=== PATIENT | female | born 1945 | race Caucasian/White ===

== ENCOUNTER 2019-01-12 15:50 | Inpatient (IN) | payer MEDICARE, MEDICAID ==
[~2019-01-12] VITALS: Ht 152.4 cm; Wt 75.2 kg
[2019-01-12 17:10] LABS: INTERNATIONAL NORMALIZED RATIO 1.54 (0.93-1.1); PROTHROMBIN TIME 16.1 Seconds (9.6-11.5)
[2019-01-12 17:11] LABS: ALBUMIN 2.9 g/dL (3.4-5.0); ANION GAP 10 mmol/L (5-15); CALCIUM 9.6 mg/dL (8.5-10.1); CHLORIDE 97 mmol/L (98-107)
[2019-01-12 17:17] LABS: ALKALINE PHOSPHATASE 103 U/L (45-117); BILIRUBIN,TOTAL 1.3 mg/dL (0.2-1.0); CREATININE 6.74 mg/dL (0.55-1.02); TOTAL PROTEIN 7.1 g/dL (6.4-8.2); TROPONIN I 0.076 ng/mL (0.000-0.045)
[2019-01-12 17:19] LABS: ALANINE AMINOTRANSFERASE 1122 U/L (12-78)
[2019-01-12] MEDS ORDERED: NALOXONE 0.4 MG/ML, 1ML IVPush ONE (17:30)
[2019-01-12 17:31] LABS: BASOPHILS # (AUTO) 0.06 x10^3/uL (0-0.1); BASOPHILS % (AUTO) 0 % (0-1); EOSINOPHILS % (AUTO) 0 % (1-7); LYMPHOCYTES # (AUTO) 1.09 x10^3/uL (1-3.4); LYMPHOCYTES % (AUTO) 7 % (22-44); MD SCAN; MEAN CORPUSCULAR HEMOGLOBIN 35.3 pg (27.0-34.8); MEAN CORPUSCULAR HGB CONC 32.5 g/dL (32.4-35.8); MEAN CORPUSCULAR VOLUME 108.8 fL (80-100); MEAN PLATELET VOLUME 9.7 fL (7.4-10.4); MONOCYTES # (AUTO) 1.01 x10^3/uL (0.2-0.8); MONOCYTES % (AUTO) 7 % (2-9); NEUTROPHILS # (AUTO) 13.42 x10^3/uL (1.8-6.8); NEUTROPHILS % (AUTO) 86 % (42-75); PLATELET COUNT 90 x10^3/uL (130-400); RED BLOOD COUNT 3.08 x10^6/uL (3.82-5.3)
[2019-01-12] MEDS ORDERED: NALOXONE 0.4 MG/ML, 1ML ONE (17:31)
--- NOTE | 2019-01-12 17:36 | NUR ---
NARCAN 0.2MG IVP GIVEN WITH POSITIVE RESULTS. PATIENT AWAKE NOW. PATIENT DOES NOT KNOW WHAT PAIN MEDICATION SHE HAD EARLIER TODAY AT [facility].
[2019-01-12] MEDS ORDERED: LORazepam 2 MG/ML, 1ML ONE (17:43)
[2019-01-12] MEDS ORDERED: LEVO88TA4 PO (18:32)
--- NOTE | 2019-01-12 18:58 | NUR ---
SBAR REPORT GIVEN TO MATEUS MORRIS. CCU ATTEMPTING TO DOWNGRADE LEVEL OF CARE. AWAITING POSSIBLE CHANGE OF ADMIT ORDERS.
[2019-01-12] MEDS ORDERED: POTA20TA14 PO (19:01)
[2019-01-12] MEDS ORDERED: HYDR-3307 PO (19:01)
[2019-01-12] MEDS ORDERED: DOXY100C15 PO (19:02)
[2019-01-12] MEDS ORDERED: HYDR25TA11 PO (19:03)
[2019-01-12] MEDS ORDERED: DICL100G19 TD (19:04)
[2019-01-12] MEDS ORDERED: CITA40TA5 PO (19:04)
[2019-01-12] MEDS ORDERED: MECL-76 PO (19:12)
[2019-01-12] MEDS ORDERED: CITA40TA12 PO (19:12)
[2019-01-12] MEDS ORDERED: LEVO125T5 PO (19:12)
[2019-01-12] MEDS ORDERED: TRIA100A TP (19:12)
[2019-01-12] MEDS ORDERED: VIT1TABL PO (19:17)
[2019-01-12] MEDS ORDERED: DIVA500T4 PO (19:17)
[2019-01-12] MEDS ORDERED: MELA1TAB35 PO (19:17)
[2019-01-12] MEDS ORDERED: SEVE800T8 PO (19:17)
[2019-01-12] MEDS ORDERED: ASPI-496 PO (19:20)
[2019-01-12] MEDS ORDERED: OMEP-110 PO (19:20)
[2019-01-12] MEDS ORDERED: CETI-237 PO (19:20)
[2019-01-12] MEDS ORDERED: DOCUSATE 100 MG CAPSULE PO PRN (19:30)
[2019-01-12] MEDS ORDERED: ONDANSETRON 2MG/ML, 2ML IVPush PRN (19:30)
[2019-01-12] MEDS ORDERED: LABETALOL 5MG/ML, 20ML IVPush PRN (19:30)
[2019-01-12] MEDS ORDERED: ONDANSETRON ODT 4 MG PO PRN (19:30)
[2019-01-12] MEDS ORDERED: hydrALAzine 20 MG/ML, 1ML IVPush PRN (19:30)
[2019-01-12] MEDS ORDERED: PROMETHAZINE 25 MG/ML, 1ML IM PRN (19:30)
--- NOTE | 2019-01-12 19:37 | NUR ---
CCU HAS REFUSED TO ACCEPT PT UNTIL EVALUATED FOR A DOWN GRADE BY ADMIT MD. PT AWAITING EVAL AT THIS TIME. PT ASLEEP VSS AND FAMILY AT BEDSIDE.
[2019-01-12] MEDS ORDERED: MECLIZINE CHEWABLE 25 MG TAB PO PRN (20:00)
[2019-01-12 20:11] LABS: FREE T4 (FREE THYROXINE) 1.13 ng/dL (0.76-1.46); THYROID STIMULATING HORMONE 0.643 mIU/L (0.358-3.740)
[2019-01-12 20:22] LABS: HEMOGLOBIN A1C 5.3 % (4.2-6.3)
--- NOTE | 2019-01-12 20:36 | NUR ---
REPORT CALLED TO FLOOR
[2019-01-12] MEDS ORDERED: CEFOXITIN 1,000 MG in DEXTROSE 5% 50 ML IV SCH (21:00)
[2019-01-12] MEDS ORDERED: DIVALPROEX 500 MG TAB.ER.24H PO SCH (21:00)
[2019-01-12] MEDS: SEVELAMER CARBONATE 800MG TAB PO SCH (21:51)
[2019-01-12 22:00] VITALS: BP 181/67
[2019-01-12] MEDS ORDERED: DARBEPOETIN 100 MCG/ML SQ SCH (22:00)
[2019-01-12] MEDS: HEPARIN 5,000 UNITS/ML, 1ML SQ SCH (22:42)
[2019-01-12 23:42] LABS: TROPONIN I 0.057 ng/mL (0.000-0.045)
[2019-01-12] MEDS: METRONIDAZOLE PMX 500MG/100ML 100 ML IV SCH (23:43)
[2019-01-12] MEDS: TRIAMCINOLONE CRM 0.1%, 15GM TP SCH (23:44)
[2019-01-13 01:38] VITALS: BP 170/68
[2019-01-13] MEDS: VALPROATE SODIUM 250 MG in SODIUM CHLORIDE 0.9% 100 ML IV SCH ×3 (03:53→21:32)
[2019-01-13 05:25] LABS: ALBUMIN 2.8 g/dL (3.4-5.0); ANION GAP 11 mmol/L (5-15); CALCIUM 9.7 mg/dL (8.5-10.1); CHLORIDE 97 mmol/L (98-107); CHOLESTEROL, TOTAL 68 mg/dL (140-239); TRIGLYCERIDES 101 mg/dL (50-200); VLDL CHOLESTEROL 20 mg/dL (0-25)
[2019-01-13 05:30] LABS: % IRON SATURATION 51 % (20-55); ALANINE AMINOTRANSFERASE 928 U/L (12-78); ALKALINE PHOSPHATASE 102 U/L (45-117); BILIRUBIN,TOTAL 1.1 mg/dL (0.2-1.0); CREATININE 7.65 mg/dL (0.55-1.02); HDL CHOL % 25 % (28-40); HDL CHOLESTEROL (DIRECT) 17 mg/dL (40-60); IRON LEVEL 132 mcg/dL (50-170); LDL CHOLESTEROL,CALCULATED 31 mg/dL (54-169); LDL/HDL RATIO 1.8 (0.5-3.0); TOTAL IRON BINDING CAPACITY 260 mcg/dL (250-450); TOTAL PROTEIN 6.5 g/dL (6.4-8.2); TROPONIN I 0.047 ng/mL (0.000-0.045)
[2019-01-13 07:07] VITALS: BP 164/65
[2019-01-13 07:55] LABS: MEAN CORPUSCULAR HGB CONC 31.3 g/dL (32.4-35.8); MEAN CORPUSCULAR VOLUME 108.5 fL (80-100); MEAN PLATELET VOLUME 9.4 fL (7.4-10.4); PLATELET COUNT 84 x10^3/uL (130-400); RED BLOOD COUNT 2.98 x10^6/uL (3.82-5.3); RED CELL DISTRIBUTION WIDTH 18.4 % (9.6-15.2)
[2019-01-13] MEDS: SEVELAMER CARBONATE 800MG TAB PO SCH ×3 (08:02→21:00)
[2019-01-13] MEDS: MULTIVITS,STRESS FORMULA 1 TABLET PO SCH (08:02)
[2019-01-13] MEDS: CITALOPRAM 20 MG TABLET PO SCH (08:02)
[2019-01-13] MEDS: CETIRIZINE 10 MG TABLET PO SCH (08:02)
[2019-01-13] MEDS: ASPIRIN 81 MG TABLET EC PO SCH (08:02)
[2019-01-13] MEDS: OMEPRAZOLE 20 MG CAPSULE.DR PO SCH (08:03)
[2019-01-13] MEDS: HEPARIN 5,000 UNITS/ML, 1ML SQ SCH ×3 (08:10→23:00)
[2019-01-13] MEDS: METRONIDAZOLE PMX 500MG/100ML 100 ML IV SCH ×2 (08:10→16:34)
[2019-01-13 08:17] LABS: MD YES
[2019-01-13 08:19] LABS: BAND#(MANUAL) 0.54 x10^3/uL; BANDS%(MANUAL) 3 % (0-7); LYMPH#(MANUAL) 1.25 x10^3/uL (1-3.4); LYMPHS% (MANUAL) 7 % (22-44); MONOS#(MANUAL) 1.07 x10^3/uL (0.3-2.7); MONOS% (MANUAL) 6 % (2-9); NRBC % (MANUAL) 2 % (0-1); SEG#(MANUAL) 15.04 x10^3/uL (1.8-6.8); SEGS% (MANUAL) 84 % (42-75)
[2019-01-13 08:20] LABS: ANISOCYTOSIS 1+; HYPOCHROMIA 1+
[2019-01-13 08:21] LABS: <PLATELET ESTIMATE> DECREASED; <PLT MORPHOLOGY> NORMAL PLT MORPH; POLYCHROMASIA 1+
[2019-01-13] MEDS: LEVOTHYROXINE 125 MCG TABLET PO SCH (08:36)
[2019-01-13] MEDS ORDERED: HYDROmorphone 2 MG/ML, 1ML IV ONE (09:00)
[2019-01-13] MEDS ORDERED: CEFOXITIN 1,000 MG in DEXTROSE 5% 50 ML IV SCH (10:00)
[2019-01-13] MEDS: TRIAMCINOLONE CRM 0.1%, 15GM TP SCH ×2 (14:23→21:00)
[2019-01-13] MEDS: CEFOXITIN 1,000 MG in DEXTROSE 5% 50 ML IV SCH (15:11)
[2019-01-13 19:50] VITALS: BP 152/80
[2019-01-13] MEDS ORDERED: HYDROmorphone 2 MG/ML, 1ML ONE (21:21)
[2019-01-13] MEDS: HYDROmorphone 1 MG/ML, 1ML IV PRN (21:30)
[2019-01-14 00:55] VITALS: BP 163/83
[2019-01-14] MEDS: METRONIDAZOLE PMX 500MG/100ML 100 ML IV SCH ×3 (01:05→17:53)
[2019-01-14] MEDS: HEPARIN 5,000 UNITS/ML, 1ML SQ SCH (04:14)
[2019-01-14] MEDS: LEVOTHYROXINE 125 MCG TABLET PO SCH (04:14)
[2019-01-14] MEDS: VALPROATE SODIUM 250 MG in SODIUM CHLORIDE 0.9% 100 ML IV SCH ×4 (04:18→21:35)
[2019-01-14 05:03] LABS: ALBUMIN 2.5 g/dL (3.4-5.0); ANION GAP 6 mmol/L (5-15); CHLORIDE 98 mmol/L (98-107)
[2019-01-14 05:07] LABS: ALANINE AMINOTRANSFERASE 640 U/L (12-78); ALKALINE PHOSPHATASE 91 U/L (45-117); BILIRUBIN,TOTAL 1.2 mg/dL (0.2-1.0); CREATININE 5.38 mg/dL (0.55-1.02); TOTAL PROTEIN 6.1 g/dL (6.4-8.2)
[2019-01-14 05:10] LABS: MEAN CORPUSCULAR HEMOGLOBIN 36.5 pg (27.0-34.8); MEAN CORPUSCULAR HGB CONC 33.4 g/dL (32.4-35.8); MEAN CORPUSCULAR VOLUME 109.4 fL (80-100); MEAN PLATELET VOLUME 10.4 fL (7.4-10.4); PLATELET COUNT 73 x10^3/uL (130-400); RED BLOOD COUNT 2.93 x10^6/uL (3.82-5.3); RED CELL DISTRIBUTION WIDTH 18.4 % (9.6-15.2)
[2019-01-14 05:53] LABS: MD YES
[2019-01-14 05:55] LABS: ANISOCYTOSIS 1+; BAND#(MANUAL) 0.38 x10^3/uL; BANDS%(MANUAL) 2 % (0-7); HYPOCHROMIA 1+; LYMPH#(MANUAL) 1.73 x10^3/uL (1-3.4); LYMPHS% (MANUAL) 9 % (22-44); MONOS#(MANUAL) 1.34 x10^3/uL (0.3-2.7); MONOS% (MANUAL) 7 % (2-9); NRBC % (MANUAL) 2 % (0-1); POLYCHROMASIA 1+; SEG#(MANUAL) 15.74 x10^3/uL (1.8-6.8); SEGS% (MANUAL) 82 % (42-75)
[2019-01-14 05:56] LABS: <PLATELET ESTIMATE> DECREASED; <PLT MORPHOLOGY> NORMAL PLT MORPH
[2019-01-14 07:30] VITALS: BP 150/81
[2019-01-14] MEDS ORDERED: hydrALAzine 20 MG/ML, 1ML IVPush PRN ×2 (07:30→21:00)
[2019-01-14] MEDS ORDERED: HEPARIN 5,000 UNITS/ML, 1ML SQ SCH ×2 (08:30→21:00)
[2019-01-14] MEDS ORDERED: HYDROmorphone 2 MG/ML, 1ML ONE ×2 (09:11→16:43)
[2019-01-14] MEDS: HYDROmorphone 1 MG/ML, 1ML IV PRN ×2 (09:15→16:51)
[2019-01-14] MEDS: TRIAMCINOLONE CRM 0.1%, 15GM TP SCH ×2 (09:18→21:31)
[2019-01-14] MEDS: ASPIRIN 81 MG TABLET EC PO SCH (09:30)
[2019-01-14] MEDS: MULTIVITS,STRESS FORMULA 1 TABLET PO SCH (09:30)
[2019-01-14] MEDS: CITALOPRAM 20 MG TABLET PO SCH (09:30)
[2019-01-14] MEDS: SEVELAMER CARBONATE 800MG TAB PO SCH ×3 (09:30→21:28)
[2019-01-14] MEDS: CETIRIZINE 10 MG TABLET PO SCH (09:30)
[2019-01-14] MEDS: OMEPRAZOLE 20 MG CAPSULE.DR PO SCH (09:30)
[2019-01-14] MEDS ORDERED: DEXTROSE 50%, 50ML SYRINGE ONE (12:58)
[2019-01-14] MEDS ORDERED: DEXTROSE 50%, 50ML SYRINGE IVPush PRN ×2 (13:00→21:00)
[2019-01-14] MEDS ORDERED: D5%-0.9% NACL 1,000 ML IV SCH (13:00)
[2019-01-14] MEDS ORDERED: GLUCAGON 1 MG IM PRN ×2 (13:00→21:00)
[2019-01-14] MEDS ORDERED: DEXTROSE 4 GM TAB.CHEW PO PRN ×2 (13:00→21:00)
[2019-01-14 16:35] VITALS: BP 142/80
[2019-01-14] MEDS: CEFOXITIN 1,000 MG in DEXTROSE 5% 50 ML IV SCH (16:51)
[2019-01-14 18:40] VITALS: BP 153/73
--- NOTE | 2019-01-14 19:18 | NUR ---
REC: pureed diet with thin liquids with 1:1 assistance for meals due to lethargy Addendum: 01/14/19 at 1918 by [place] ULLOA Amended: Links added.
[2019-01-14] MEDS ORDERED: SEVELAMER CARBONATE 800MG TAB ONE (20:29)
[2019-01-14] MEDS ORDERED: HEPARIN 5,000 UNITS/ML, 1ML ONE (20:29)
[2019-01-14] MEDS ORDERED: LABETALOL 5MG/ML, 20ML IVPush PRN (21:00)
[2019-01-14] MEDS ORDERED: DOCUSATE 100 MG CAPSULE PO PRN (21:00)
[2019-01-14] MEDS ORDERED: MECLIZINE CHEWABLE 25 MG TAB PO PRN (21:00)
[2019-01-14] MEDS ORDERED: ONDANSETRON 2MG/ML, 2ML IVPush PRN (21:00)
[2019-01-14] MEDS ORDERED: HYDROmorphone 1 MG/ML, 1ML IV PRN (21:00)
[2019-01-14] MEDS ORDERED: ONDANSETRON ODT 4 MG PO PRN (21:00)
[2019-01-14] MEDS ORDERED: SODIUM CHLORIDE FLUSH 10ML SYR IVF SCH (21:00)
[2019-01-14] MEDS ORDERED: PROMETHAZINE 25 MG/ML, 1ML IM PRN (21:00)
[2019-01-14] MEDS: SODIUM CHLORIDE FLUSH 10ML SYR IVF SCH (21:28)
[2019-01-14] MEDS: D5%-0.9% NACL 1,000 ML IV SCH (21:36)
[2019-01-15] MEDS: METRONIDAZOLE PMX 500MG/100ML 100 ML IV SCH ×3 (02:06→18:32)
[2019-01-15 02:08] VITALS: BP 137/76
[2019-01-15 03:08] LABS: CULTURE INDICATED? YES; MICROSCOPIC INDICATED
[2019-01-15] MEDS ORDERED: HYDROmorphone 2 MG/ML, 1ML ONE (03:31)
[2019-01-15] MEDS: VALPROATE SODIUM 250 MG in SODIUM CHLORIDE 0.9% 100 ML IV SCH ×4 (03:37→21:37)
[2019-01-15] MEDS: LEVOTHYROXINE 125 MCG TABLET PO SCH (06:20)
[2019-01-15 06:54] LABS: ALANINE AMINOTRANSFERASE 442 U/L (12-78); ALBUMIN 2.4 g/dL (3.4-5.0); ANION GAP 5 mmol/L (5-15); CALCIUM 8.6 mg/dL (8.5-10.1); CHLORIDE 105 mmol/L (98-107)
[2019-01-15 06:57] LABS: ALKALINE PHOSPHATASE 81 U/L (45-117); BILIRUBIN,TOTAL 1.2 mg/dL (0.2-1.0); TOTAL PROTEIN 6.5 g/dL (6.4-8.2)
[2019-01-15 06:58] LABS: MEAN CORPUSCULAR HEMOGLOBIN 34.6 pg (27.0-34.8); MEAN CORPUSCULAR HGB CONC 31.3 g/dL (32.4-35.8); MEAN CORPUSCULAR VOLUME 110.6 fL (80-100); MEAN PLATELET VOLUME 9.1 fL (7.4-10.4); PLATELET COUNT 64 x10^3/uL (130-400); RED BLOOD COUNT 2.91 x10^6/uL (3.82-5.3); RED CELL DISTRIBUTION WIDTH 20.1 % (9.6-15.2)
[2019-01-15 07:11] VITALS: BP 132/72
[2019-01-15 07:18] LABS: BASOPHILS # (AUTO) 0.01 x10^3/uL (0-0.1); BASOPHILS % (AUTO) 0 % (0-1); EOSINOPHILS # (AUTO) 0.07 x10^3/uL (0-0.4); EOSINOPHILS % (AUTO) 0 % (1-7); LYMPHOCYTES # (AUTO) 1.75 x10^3/uL (1-3.4); LYMPHOCYTES % (AUTO) 11 % (22-44); MD MORPH REVIEW ONLY; MONOCYTES # (AUTO) 1.16 x10^3/uL (0.2-0.8); MONOCYTES % (AUTO) 7 % (2-9); NEUTROPHILS # (AUTO) 13.31 x10^3/uL (1.8-6.8); NEUTROPHILS % (AUTO) 82 % (42-75)
[2019-01-15 07:19] LABS: ANISOCYTOSIS 1+
[2019-01-15 07:20] LABS: <PLATELET ESTIMATE> DECREASED; <PLT MORPHOLOGY> NORMAL PLT MORPH; HYPOCHROMIA 1+; POLYCHROMASIA 1+
[2019-01-15] MEDS: SODIUM CHLORIDE FLUSH 10ML SYR IVF SCH ×2 (09:00→21:37)
[2019-01-15] MEDS: MULTIVITS,STRESS FORMULA 1 TABLET PO SCH (09:25)
[2019-01-15] MEDS: CETIRIZINE 10 MG TABLET PO SCH (09:25)
[2019-01-15] MEDS: SEVELAMER CARBONATE 800MG TAB PO SCH ×2 (09:25→17:40)
[2019-01-15] MEDS: ASPIRIN 81 MG TABLET EC PO SCH (09:26)
[2019-01-15] MEDS: OMEPRAZOLE 20 MG CAPSULE.DR PO SCH (09:26)
[2019-01-15] MEDS: CITALOPRAM 20 MG TABLET PO SCH (09:26)
[2019-01-15] MEDS: TRIAMCINOLONE CRM 0.1%, 15GM TP SCH ×2 (09:26→21:38)
[2019-01-15 12:39] VITALS: BP 138/78
[2019-01-15] MEDS: CEFOXITIN 1,000 MG in DEXTROSE 5% 50 ML IV SCH (17:40)
[2019-01-15 19:12] VITALS: BP 164/82
[2019-01-16] MEDS: D5%-0.9% NACL 1,000 ML IV SCH (00:09)
[2019-01-16 01:05] VITALS: BP 148/77
[2019-01-16] MEDS: METRONIDAZOLE PMX 500MG/100ML 100 ML IV SCH ×3 (02:13→18:03)
[2019-01-16] MEDS: VALPROATE SODIUM 250 MG in SODIUM CHLORIDE 0.9% 100 ML IV SCH ×4 (03:22→21:36)
[2019-01-16] MEDS: LEVOTHYROXINE 125 MCG TABLET PO SCH (06:37)
[2019-01-16 07:28] VITALS: BP 166/83
[2019-01-16] MEDS: MULTIVITS,STRESS FORMULA 1 TABLET PO SCH (08:24)
[2019-01-16] MEDS: OMEPRAZOLE 20 MG CAPSULE.DR PO SCH (08:24)
[2019-01-16] MEDS: TRIAMCINOLONE CRM 0.1%, 15GM TP SCH ×2 (08:24→21:36)
[2019-01-16] MEDS: SEVELAMER CARBONATE 800MG TAB PO SCH ×3 (08:24→16:49)
[2019-01-16] MEDS: CITALOPRAM 20 MG TABLET PO SCH (08:24)
[2019-01-16] MEDS: SODIUM CHLORIDE FLUSH 10ML SYR IVF SCH ×2 (08:24→21:36)
[2019-01-16] MEDS: CETIRIZINE 10 MG TABLET PO SCH (08:24)
[2019-01-16] MEDS: ASPIRIN 81 MG TABLET EC PO SCH (08:24)
[2019-01-16 13:41] VITALS: BP 154/78
[2019-01-16] MEDS: CEFOXITIN 1,000 MG in DEXTROSE 5% 50 ML IV SCH (16:49)
[2019-01-16 19:22] VITALS: BP 163/84
[2019-01-17 01:00] VITALS: BP 153/83
[2019-01-17] MEDS: METRONIDAZOLE PMX 500MG/100ML 100 ML IV SCH ×2 (01:36→11:35)
[2019-01-17] MEDS: VALPROATE SODIUM 250 MG in SODIUM CHLORIDE 0.9% 100 ML IV SCH ×2 (02:55→09:15)
[2019-01-17] MEDS: D5%-0.9% NACL 1,000 ML IV SCH (03:49)
[2019-01-17 06:26] LABS: ANION GAP 10 mmol/L (5-15); CALCIUM 9.1 mg/dL (8.5-10.1); CHLORIDE 109 mmol/L (98-107)
[2019-01-17] MEDS: LEVOTHYROXINE 125 MCG TABLET PO SCH (06:26)
[2019-01-17 06:29] LABS: ALANINE AMINOTRANSFERASE 199 U/L (12-78); ALKALINE PHOSPHATASE 66 U/L (45-117); BILIRUBIN,TOTAL 1.1 mg/dL (0.2-1.0); CREATININE 6.75 mg/dL (0.55-1.02); TOTAL PROTEIN 5.7 g/dL (6.4-8.2)
[2019-01-17 07:27] LABS: MEAN CORPUSCULAR HEMOGLOBIN 35.3 pg (27.0-34.8); MEAN CORPUSCULAR VOLUME 110.1 fL (80-100); MEAN PLATELET VOLUME 8.6 fL (7.4-10.4); RED BLOOD COUNT 2.76 x10^6/uL (3.82-5.3); RED CELL DISTRIBUTION WIDTH 21.3 % (9.6-15.2)
[2019-01-17 07:29] VITALS: BP 152/65
[2019-01-17 07:29] LABS: MD YES; PLATELET COUNT 48 x10^3/uL (130-400)
[2019-01-17] MEDS: OMEPRAZOLE 20 MG CAPSULE.DR PO SCH (07:30)
[2019-01-17 07:34] LABS: <PLATELET ESTIMATE> DECREASED; <PLT MORPHOLOGY> NORMAL PLT MORPH; ANISOCYTOSIS 1+; BAND#(MANUAL) 0.31 x10^3/uL; BANDS%(MANUAL) 3 % (0-7); HYPOCHROMIA 1+; LYMPH#(MANUAL) 1.44 x10^3/uL (1-3.4); LYMPHS% (MANUAL) 14 % (22-44); METAMYELOCYTES# (MANUAL) 0.21 x10^3/uL (0-0); METAMYELOCYTES% (MANUAL) 2 % (0-1); MONOS#(MANUAL) 0.93 x10^3/uL (0.3-2.7); MONOS% (MANUAL) 9 % (2-9); MYELOCYTES% (MANUAL) 1 % (0-0); NRBC % (MANUAL) 1 % (0-1); POLYCHROMASIA 1+; SEG#(MANUAL) 7.31 x10^3/uL (1.8-6.8); SEGS% (MANUAL) 71 % (42-75)
[2019-01-17] MEDS: CITALOPRAM 20 MG TABLET PO SCH (09:09)
[2019-01-17] MEDS: SEVELAMER CARBONATE 800MG TAB PO SCH ×3 (09:09→16:00)
[2019-01-17] MEDS: ASPIRIN 81 MG TABLET EC PO SCH (09:10)
[2019-01-17] MEDS: MULTIVITS,STRESS FORMULA 1 TABLET PO SCH (09:10)
[2019-01-17] MEDS: CETIRIZINE 10 MG TABLET PO SCH (09:10)
[2019-01-17] MEDS: TRIAMCINOLONE CRM 0.1%, 15GM TP SCH ×2 (09:11→21:24)
[2019-01-17] MEDS: SODIUM CHLORIDE FLUSH 10ML SYR IVF SCH ×2 (09:12→21:24)
[2019-01-17 13:32] VITALS: BP 153/87
[2019-01-17] MEDS: DARBEPOETIN 100 MCG/ML SQ SCH (18:25)
[2019-01-17 19:24] VITALS: BP 143/75
[2019-01-17] MEDS: VALPROIC ACID 250 MG CAPSULE PO SCH (21:00)
[2019-01-18 01:04] VITALS: BP 146/84
[2019-01-18] MEDS: LEVOTHYROXINE 125 MCG TABLET PO SCH (05:49)
[2019-01-18 07:47] VITALS: BP 155/74
[2019-01-18 08:02] LABS: ALANINE AMINOTRANSFERASE 148 U/L (12-78); ALBUMIN 1.9 g/dL (3.4-5.0); ANION GAP 7 mmol/L (5-15); CALCIUM 8.7 mg/dL (8.5-10.1); CHLORIDE 107 mmol/L (98-107); CREATININE 4.43 mg/dL (0.55-1.02)
[2019-01-18 08:05] LABS: ALKALINE PHOSPHATASE 67 U/L (45-117); BILIRUBIN,TOTAL 1.1 mg/dL (0.2-1.0)
[2019-01-18 08:41] LABS: MD YES; MEAN CORPUSCULAR HEMOGLOBIN 35.9 pg (27.0-34.8); MEAN CORPUSCULAR HGB CONC 32.4 g/dL (32.4-35.8); MEAN CORPUSCULAR VOLUME 110.9 fL (80-100); MEAN PLATELET VOLUME 8.9 fL (7.4-10.4); PLATELET COUNT 56 x10^3/uL (130-400); RED BLOOD COUNT 2.77 x10^6/uL (3.82-5.3); RED CELL DISTRIBUTION WIDTH 22.1 % (9.6-15.2)
[2019-01-18 08:45] LABS: <PLATELET ESTIMATE> DECREASED; <PLT MORPHOLOGY> NORMAL PLT MORPH; ANISOCYTOSIS 1+; BAND#(MANUAL) 0.58 x10^3/uL; BANDS%(MANUAL) 6 % (0-7); HYPOCHROMIA 1+; LYMPH#(MANUAL) 0.68 x10^3/uL (1-3.4); LYMPHS% (MANUAL) 7 % (22-44); METAMYELOCYTES% (MANUAL) 1 % (0-1); MONOS#(MANUAL) 0.29 x10^3/uL (0.3-2.7); MONOS% (MANUAL) 3 % (2-9); MYELOCYTES% (MANUAL) 1 % (0-0); NRBC % (MANUAL) 1 % (0-1); POLYCHROMASIA 1+; SEG#(MANUAL) 7.95 x10^3/uL (1.8-6.8); SEGS% (MANUAL) 82 % (42-75)
[2019-01-18] MEDS: OMEPRAZOLE 20 MG CAPSULE.DR PO SCH (10:32)
[2019-01-18] MEDS: TRIAMCINOLONE CRM 0.1%, 15GM TP SCH ×2 (10:32→21:50)
[2019-01-18] MEDS: BISACODYL 5 MG EC TABLET PO SCH (10:32)
[2019-01-18] MEDS: ASPIRIN 81 MG TABLET EC PO SCH (10:32)
[2019-01-18] MEDS: SEVELAMER CARBONATE 800MG TAB PO SCH ×3 (10:32→16:38)
[2019-01-18] MEDS: MULTIVITS,STRESS FORMULA 1 TABLET PO SCH (10:32)
[2019-01-18] MEDS: VALPROIC ACID 250 MG CAPSULE PO SCH ×2 (10:32→21:50)
[2019-01-18] MEDS: SODIUM CHLORIDE FLUSH 10ML SYR IVF SCH ×2 (10:41→21:50)
[2019-01-18 12:10] VITALS: BP 168/87
[2019-01-18 19:56] VITALS: BP 155/84
[2019-01-19 01:29] VITALS: BP 132/75
[2019-01-19] MEDS: LEVOTHYROXINE 125 MCG TABLET PO SCH (05:45)
[2019-01-19 06:20] LABS: CHLORIDE 106 mmol/L (98-107); MEAN CORPUSCULAR HEMOGLOBIN 35.9 pg (27.0-34.8); MEAN CORPUSCULAR HGB CONC 32.6 g/dL (32.4-35.8); MEAN CORPUSCULAR VOLUME 110.2 fL (80-100); MEAN PLATELET VOLUME 9.1 fL (7.4-10.4); PLATELET COUNT 79 x10^3/uL (130-400); RED BLOOD COUNT 2.74 x10^6/uL (3.82-5.3); RED CELL DISTRIBUTION WIDTH 22.7 % (9.6-15.2)
[2019-01-19 06:45] LABS: MD YES
[2019-01-19 06:46] LABS: BANDS%(MANUAL) 1 % (0-7); EOS% (MANUAL) 1 % (1-7); METAMYELOCYTES# (MANUAL) 0.19 x10^3/uL (0-0); METAMYELOCYTES% (MANUAL) 2 % (0-1); MONOS#(MANUAL) 0.86 x10^3/uL (0.3-2.7); MONOS% (MANUAL) 9 % (2-9); MYELOCYTES# (MANUAL) 0.19 x10^3/uL (0-0); MYELOCYTES% (MANUAL) 2 % (0-0)
[2019-01-19 06:47] LABS: LYMPH#(MANUAL) 1.73 x10^3/uL (1-3.4); LYMPHS% (MANUAL) 18 % (22-44); SEG#(MANUAL) 6.43 x10^3/uL (1.8-6.8); SEGS% (MANUAL) 67 % (42-75)
[2019-01-19 06:48] LABS: <PLATELET ESTIMATE> DECREASED; <PLT MORPHOLOGY> NORMAL PLT MORPH; ANISOCYTOSIS 1+; HYPOCHROMIA 1+; POLYCHROMASIA 1+
[2019-01-19 06:51] LABS: ALANINE AMINOTRANSFERASE 108 U/L (12-78); ALBUMIN 1.9 g/dL (3.4-5.0); ALKALINE PHOSPHATASE 62 U/L (45-117); ANION GAP 6 mmol/L (5-15); BILIRUBIN,TOTAL 1.2 mg/dL (0.2-1.0); CREATININE 5.63 mg/dL (0.55-1.02); TOTAL PROTEIN 6.1 g/dL (6.4-8.2)
[2019-01-19 07:54] VITALS: BP 136/79
[2019-01-19] MEDS: SODIUM CHLORIDE FLUSH 10ML SYR IVF SCH ×2 (09:00→20:55)
[2019-01-19] MEDS: VALPROIC ACID 250 MG CAPSULE PO SCH ×2 (09:35→20:55)
[2019-01-19] MEDS: SEVELAMER CARBONATE 800MG TAB PO SCH ×3 (09:35→19:30)
[2019-01-19] MEDS: OMEPRAZOLE 20 MG CAPSULE.DR PO SCH (09:35)
[2019-01-19] MEDS: ASPIRIN 81 MG TABLET EC PO SCH (09:35)
[2019-01-19] MEDS: BISACODYL 5 MG EC TABLET PO SCH (09:36)
[2019-01-19] MEDS: MULTIVITS,STRESS FORMULA 1 TABLET PO SCH (09:39)
[2019-01-19] MEDS: TRIAMCINOLONE CRM 0.1%, 15GM TP SCH ×2 (09:39→20:55)
[2019-01-19] MEDS ORDERED: BISACODYL 10 MG SUPP PR PRN (10:00)
[2019-01-19] MEDS ORDERED: POLYETHYLENE GLYCOL 17 GM PACKET PO ONE (10:00)
[2019-01-19] MEDS ORDERED: POLYETHYLENE GLYCOL 17 GM PACKET ONE (14:42)
[2019-01-19 15:10] VITALS: BP 130/82
[2019-01-19 19:40] VITALS: BP 155/79
[2019-01-20 02:12] VITALS: BP 144/71
[2019-01-20] MEDS: LEVOTHYROXINE 125 MCG TABLET PO SCH (05:53)
[2019-01-20 07:02] VITALS: BP 140/69
[2019-01-20] MEDS: VALPROIC ACID 250 MG CAPSULE PO SCH ×2 (09:25→20:06)
[2019-01-20] MEDS: SEVELAMER CARBONATE 800MG TAB PO SCH ×3 (09:25→17:51)
[2019-01-20] MEDS: OMEPRAZOLE 20 MG CAPSULE.DR PO SCH (09:25)
[2019-01-20] MEDS: BISACODYL 5 MG EC TABLET PO SCH (09:25)
[2019-01-20] MEDS: MULTIVITS,STRESS FORMULA 1 TABLET PO SCH (09:25)
[2019-01-20] MEDS: ASPIRIN 81 MG TABLET EC PO SCH (09:25)
[2019-01-20] MEDS: SODIUM CHLORIDE FLUSH 10ML SYR IVF SCH ×2 (09:25→20:07)
[2019-01-20] MEDS: TRIAMCINOLONE CRM 0.1%, 15GM TP SCH ×2 (11:19→20:06)
[2019-01-20 14:36] VITALS: BP 135/73
[2019-01-20 19:08] VITALS: BP 153/77
[2019-01-21 01:17] VITALS: BP 136/76
[2019-01-21] MEDS: LEVOTHYROXINE 125 MCG TABLET PO SCH (05:42)
[2019-01-21 06:11] LABS: BASOPHILS # (AUTO) 0.03 x10^3/uL (0-0.1); BASOPHILS % (AUTO) 0 % (0-1); EOSINOPHILS % (AUTO) 2 % (1-7); LYMPHOCYTES # (AUTO) 1.25 x10^3/uL (1-3.4); LYMPHOCYTES % (AUTO) 14 % (22-44); MD NO; MEAN CORPUSCULAR HEMOGLOBIN 36.2 pg (27.0-34.8); MEAN CORPUSCULAR HGB CONC 32.8 g/dL (32.4-35.8); MEAN CORPUSCULAR VOLUME 110.5 fL (80-100); MEAN PLATELET VOLUME 8.7 fL (7.4-10.4); MONOCYTES # (AUTO) 1.24 x10^3/uL (0.2-0.8); MONOCYTES % (AUTO) 14 % (2-9); NEUTROPHILS # (AUTO) 6.23 x10^3/uL (1.8-6.8); NEUTROPHILS % (AUTO) 70 % (42-75); PLATELET COUNT 125 x10^3/uL (130-400); RED BLOOD COUNT 2.65 x10^6/uL (3.82-5.3); RED CELL DISTRIBUTION WIDTH 21.6 % (9.6-15.2)
[2019-01-21 06:23] LABS: CHLORIDE 100 mmol/L (98-107)
[2019-01-21 06:29] LABS: ALANINE AMINOTRANSFERASE 68 U/L (12-78); ALBUMIN 1.9 g/dL (3.4-5.0); ALKALINE PHOSPHATASE 80 U/L (45-117); ANION GAP 8 mmol/L (5-15); BILIRUBIN,TOTAL 0.7 mg/dL (0.2-1.0); CREATININE 5.29 mg/dL (0.55-1.02); TOTAL PROTEIN 6.6 g/dL (6.4-8.2)
[2019-01-21 07:35] VITALS: BP 132/73
[2019-01-21] MEDS: OMEPRAZOLE 20 MG CAPSULE.DR PO SCH (08:57)
[2019-01-21] MEDS: VALPROIC ACID 250 MG CAPSULE PO SCH ×2 (08:57→20:13)
[2019-01-21] MEDS: MULTIVITS,STRESS FORMULA 1 TABLET PO SCH (08:57)
[2019-01-21] MEDS: SEVELAMER CARBONATE 800MG TAB PO SCH ×3 (08:57→17:30)
[2019-01-21] MEDS: ASPIRIN 81 MG TABLET EC PO SCH (08:57)
[2019-01-21] MEDS: BISACODYL 5 MG EC TABLET PO SCH (08:57)
[2019-01-21] MEDS: TRIAMCINOLONE CRM 0.1%, 15GM TP SCH ×2 (08:58→20:12)
[2019-01-21] MEDS: SODIUM CHLORIDE FLUSH 10ML SYR IVF SCH ×2 (09:00→20:13)
[2019-01-21 13:51] VITALS: BP 129/76
[2019-01-21 19:53] VITALS: BP 134/76
[2019-01-22 01:42] VITALS: BP 149/84
[2019-01-22 05:52] LABS: MEAN CORPUSCULAR HEMOGLOBIN 36.4 pg (27.0-34.8); MEAN CORPUSCULAR HGB CONC 33.3 g/dL (32.4-35.8); MEAN PLATELET VOLUME 8.4 fL (7.4-10.4); PLATELET COUNT 114 x10^3/uL (130-400); RED BLOOD COUNT 2.39 x10^6/uL (3.82-5.3); RED CELL DISTRIBUTION WIDTH 21.3 % (9.6-15.2)
[2019-01-22 06:08] LABS: CHLORIDE 101 mmol/L (98-107)
[2019-01-22 06:19] LABS: ALANINE AMINOTRANSFERASE 50 U/L (12-78); ALKALINE PHOSPHATASE 62 U/L (45-117); ANION GAP 7 mmol/L (5-15); BILIRUBIN,TOTAL 0.9 mg/dL (0.2-1.0); CALCIUM 8.5 mg/dL (8.5-10.1); CREATININE 3.68 mg/dL (0.55-1.02); TOTAL PROTEIN 6.3 g/dL (6.4-8.2)
[2019-01-22 06:29] LABS: MD YES
[2019-01-22 06:31] LABS: BAND#(MANUAL) 0.48 x10^3/uL; BANDS%(MANUAL) 7 % (0-7); EOS#(MANUAL) 0.07 x10^3/uL (0.0-0.4); EOS% (MANUAL) 1 % (1-7); LYMPH#(MANUAL) 1.09 x10^3/uL (1-3.4); LYMPHS% (MANUAL) 16 % (22-44); METAMYELOCYTES# (MANUAL) 0.14 x10^3/uL (0-0); METAMYELOCYTES% (MANUAL) 2 % (0-1); MONOS#(MANUAL) 0.75 x10^3/uL (0.3-2.7); MONOS% (MANUAL) 11 % (2-9); SEG#(MANUAL) 4.28 x10^3/uL (1.8-6.8); SEGS% (MANUAL) 63 % (42-75)
[2019-01-22] MEDS: LEVOTHYROXINE 125 MCG TABLET PO SCH (06:32)
[2019-01-22 06:34] LABS: NRBC % (MANUAL) 1 % (0-1)
[2019-01-22 06:35] LABS: ANISOCYTOSIS 1+; HYPOCHROMIA 1+; POLYCHROMASIA 1+
[2019-01-22 06:36] LABS: <PLATELET ESTIMATE> DECREASED; <PLT MORPHOLOGY> NORMAL PLT MORPH; OVALOCYTES 1+
[2019-01-22 07:33] VITALS: BP 143/79
[2019-01-22] MEDS: ASPIRIN 81 MG TABLET EC PO SCH (08:21)
[2019-01-22] MEDS: OMEPRAZOLE 20 MG CAPSULE.DR PO SCH (08:21)
[2019-01-22] MEDS: SEVELAMER CARBONATE 800MG TAB PO SCH ×3 (08:21→18:34)
[2019-01-22] MEDS: SODIUM CHLORIDE FLUSH 10ML SYR IVF SCH ×2 (08:21→22:14)
[2019-01-22] MEDS: VALPROIC ACID 250 MG CAPSULE PO SCH ×2 (08:21→22:13)
[2019-01-22] MEDS: MULTIVITS,STRESS FORMULA 1 TABLET PO SCH (08:21)
[2019-01-22] MEDS: BISACODYL 5 MG EC TABLET PO SCH (08:21)
[2019-01-22] MEDS: TRIAMCINOLONE CRM 0.1%, 15GM TP SCH ×2 (08:22→22:14)
[2019-01-22 14:38] VITALS: BP 139/74
[2019-01-22 18:44] VITALS: BP 145/78
[2019-01-23 01:08] VITALS: BP 132/72
[2019-01-23] MEDS: LEVOTHYROXINE 125 MCG TABLET PO SCH (06:20)
[2019-01-23 06:50] VITALS: BP 139/72
[2019-01-23] MEDS: OMEPRAZOLE 20 MG CAPSULE.DR PO SCH (08:24)
[2019-01-23] MEDS: BISACODYL 5 MG EC TABLET PO SCH (08:24)
[2019-01-23] MEDS: ASPIRIN 81 MG TABLET EC PO SCH (08:24)
[2019-01-23] MEDS: SODIUM CHLORIDE FLUSH 10ML SYR IVF SCH ×2 (08:24→21:28)
[2019-01-23] MEDS: VALPROIC ACID 250 MG CAPSULE PO SCH ×2 (08:24→21:27)
[2019-01-23] MEDS: SEVELAMER CARBONATE 800MG TAB PO SCH ×3 (08:24→17:55)
[2019-01-23] MEDS: MULTIVITS,STRESS FORMULA 1 TABLET PO SCH (08:24)
[2019-01-23] MEDS: TRIAMCINOLONE CRM 0.1%, 15GM TP SCH ×2 (08:28→21:27)
[2019-01-23 09:21] LABS: BASOPHILS # (AUTO) 0.02 x10^3/uL (0-0.1); BASOPHILS % (AUTO) 0 % (0-1); EOSINOPHILS # (AUTO) 0.09 x10^3/uL (0-0.4); EOSINOPHILS % (AUTO) 2 % (1-7); LYMPHOCYTES # (AUTO) 1.18 x10^3/uL (1-3.4); LYMPHOCYTES % (AUTO) 20 % (22-44); MD NO; MEAN CORPUSCULAR HEMOGLOBIN 35.1 pg (27.0-34.8); MEAN CORPUSCULAR HGB CONC 32.1 g/dL (32.4-35.8); MEAN CORPUSCULAR VOLUME 109.6 fL (80-100); MEAN PLATELET VOLUME 8.2 fL (7.4-10.4); MONOCYTES % (AUTO) 15 % (2-9); NEUTROPHILS # (AUTO) 3.68 x10^3/uL (1.8-6.8); NEUTROPHILS % (AUTO) 63 % (42-75); PLATELET COUNT 139 x10^3/uL (130-400); RED BLOOD COUNT 2.42 x10^6/uL (3.82-5.3); RED CELL DISTRIBUTION WIDTH 20.7 % (9.6-15.2)
[2019-01-23 09:31] LABS: ALBUMIN 1.9 g/dL (3.4-5.0); ANION GAP 7 mmol/L (5-15); CALCIUM 8.7 mg/dL (8.5-10.1); CHLORIDE 99 mmol/L (98-107)
[2019-01-23 09:35] LABS: ALANINE AMINOTRANSFERASE 41 U/L (12-78); ALKALINE PHOSPHATASE 60 U/L (45-117); BILIRUBIN,TOTAL 0.7 mg/dL (0.2-1.0); CREATININE 5.39 mg/dL (0.55-1.02); TOTAL PROTEIN 6.3 g/dL (6.4-8.2)
[2019-01-23] MEDS ORDERED: ALBUTEROL SULFATE 2.5 MG/3 ML NPPB PRN (11:30)
[2019-01-23] MEDS: ALBUTEROL SULFATE 2.5 MG/3 ML NPPB SCH ×2 (14:42→21:00)
[2019-01-23 15:23] VITALS: BP 125/74
--- NOTE | 2019-01-23 17:48 | NUR ---
Added green activity sheet to pt room: "Up to chair for all meals with Mod A expected for bed mobility and Min/CGA for transfers with FWW" Addendum: 01/23/19 at 1748 by ROSY NIEVES PT Amended: Links added.
[2019-01-23 18:26] VITALS: BP 118/75
[2019-01-24 00:47] VITALS: BP 116/65
[2019-01-24] MEDS: LEVOTHYROXINE 125 MCG TABLET PO SCH (05:15)
[2019-01-24 06:08] LABS: BASOPHILS # (AUTO) 0.01 x10^3/uL (0-0.1); BASOPHILS % (AUTO) 0 % (0-1); EOSINOPHILS # (AUTO) 0.03 x10^3/uL (0-0.4); EOSINOPHILS % (AUTO) 1 % (1-7); LYMPHOCYTES # (AUTO) 1.07 x10^3/uL (1-3.4); LYMPHOCYTES % (AUTO) 23 % (22-44); MD NO; MEAN CORPUSCULAR HGB CONC 32.1 g/dL (32.4-35.8); MEAN CORPUSCULAR VOLUME 109.2 fL (80-100); MEAN PLATELET VOLUME 8.9 fL (7.4-10.4); MONOCYTES # (AUTO) 0.59 x10^3/uL (0.2-0.8); MONOCYTES % (AUTO) 13 % (2-9); NEUTROPHILS # (AUTO) 2.98 x10^3/uL (1.8-6.8); NEUTROPHILS % (AUTO) 64 % (42-75); PLATELET COUNT 135 x10^3/uL (130-400); RED CELL DISTRIBUTION WIDTH 20.1 % (9.6-15.2)
[2019-01-24 06:10] LABS: ALBUMIN 1.8 g/dL (3.4-5.0); ANION GAP 9 mmol/L (5-15); CALCIUM 8.3 mg/dL (8.5-10.1); CHLORIDE 98 mmol/L (98-107)
[2019-01-24 06:15] LABS: ALANINE AMINOTRANSFERASE 34 U/L (12-78); ALKALINE PHOSPHATASE 53 U/L (45-117); BILIRUBIN,TOTAL 0.8 mg/dL (0.2-1.0); CREATININE 6.63 mg/dL (0.55-1.02); TOTAL PROTEIN 6.1 g/dL (6.4-8.2)
[2019-01-24] MEDS: ALBUTEROL SULFATE 2.5 MG/3 ML NPPB SCH ×4 (06:35→20:45)
[2019-01-24 07:09] VITALS: BP 127/73
[2019-01-24] MEDS: BISACODYL 5 MG EC TABLET PO SCH (07:38)
[2019-01-24] MEDS: OMEPRAZOLE 20 MG CAPSULE.DR PO SCH (07:50)
[2019-01-24] MEDS: MULTIVITS,STRESS FORMULA 1 TABLET PO SCH (07:50)
[2019-01-24] MEDS: ASPIRIN 81 MG TABLET EC PO SCH (07:50)
[2019-01-24] MEDS: VALPROIC ACID 250 MG CAPSULE PO SCH ×2 (07:50→20:36)
[2019-01-24] MEDS: SEVELAMER CARBONATE 800MG TAB PO SCH ×3 (07:50→19:20)
[2019-01-24] MEDS: SODIUM CHLORIDE FLUSH 10ML SYR IVF SCH ×2 (07:51→20:36)
[2019-01-24] MEDS: TRIAMCINOLONE CRM 0.1%, 15GM TP SCH ×2 (07:55→20:36)
[2019-01-24 13:17] VITALS: BP 125/67
[2019-01-24] MEDS: DARBEPOETIN 100 MCG/ML SQ SCH (16:17)
[2019-01-24 20:19] VITALS: BP 124/71
[2019-01-25 01:00] VITALS: BP 135/82
[2019-01-25] MEDS: LEVOTHYROXINE 125 MCG TABLET PO SCH (05:02)
[2019-01-25 06:08] LABS: ALBUMIN 1.7 g/dL (3.4-5.0); ANION GAP 7 mmol/L (5-15); CALCIUM 8.1 mg/dL (8.5-10.1); CHLORIDE 102 mmol/L (98-107)
[2019-01-25 06:13] LABS: ALANINE AMINOTRANSFERASE 31 U/L (12-78); ALKALINE PHOSPHATASE 59 U/L (45-117); BILIRUBIN,TOTAL 0.6 mg/dL (0.2-1.0); CREATININE 3.72 mg/dL (0.55-1.02)
[2019-01-25] MEDS: ALBUTEROL SULFATE 2.5 MG/3 ML NPPB SCH (06:48)
[2019-01-25 07:48] VITALS: BP 137/79
[2019-01-25] MEDS: BISACODYL 5 MG EC TABLET PO SCH (08:04)
[2019-01-25] MEDS: OMEPRAZOLE 20 MG CAPSULE.DR PO SCH (08:16)
[2019-01-25] MEDS: ASPIRIN 81 MG TABLET EC PO SCH (08:16)
[2019-01-25] MEDS: VALPROIC ACID 250 MG CAPSULE PO SCH ×2 (08:16→20:32)
[2019-01-25] MEDS: MULTIVITS,STRESS FORMULA 1 TABLET PO SCH (08:16)
[2019-01-25] MEDS: TRIAMCINOLONE CRM 0.1%, 15GM TP SCH ×2 (08:16→20:33)
[2019-01-25] MEDS: SEVELAMER CARBONATE 800MG TAB PO SCH ×3 (08:16→17:33)
[2019-01-25] MEDS: SODIUM CHLORIDE FLUSH 10ML SYR IVF SCH ×2 (08:17→20:32)
[2019-01-25] MEDS: PANTOPROZOLE 40MG TABLET PO SCH ×2 (10:00→20:32)
[2019-01-25 14:16] VITALS: BP 132/74
--- NOTE | 2019-01-25 14:34 | NUR ---
Continue with a GI soft diet with thin liquids. [place] sheet placed in room. Addendum: 01/25/19 at 1445 by MARINA ULLOA Amended: Links added.
[2019-01-25 19:42] VITALS: BP 144/78
[2019-01-26 01:38] VITALS: BP 151/73
[2019-01-26 04:48] LABS: BASOPHILS # (AUTO) 0.02 x10^3/uL (0-0.1); BASOPHILS % (AUTO) 0 % (0-1); EOSINOPHILS # (AUTO) 0.22 x10^3/uL (0-0.4); EOSINOPHILS % (AUTO) 3 % (1-7); LYMPHOCYTES # (AUTO) 1.45 x10^3/uL (1-3.4); LYMPHOCYTES % (AUTO) 21 % (22-44); MD NO; MEAN CORPUSCULAR HGB CONC 33.3 g/dL (32.4-35.8); MEAN CORPUSCULAR VOLUME 108.2 fL (80-100); MONOCYTES # (AUTO) 0.53 x10^3/uL (0.2-0.8); MONOCYTES % (AUTO) 8 % (2-9); NEUTROPHILS # (AUTO) 4.62 x10^3/uL (1.8-6.8); NEUTROPHILS % (AUTO) 68 % (42-75); PLATELET COUNT 147 x10^3/uL (130-400); RED BLOOD COUNT 2.34 x10^6/uL (3.82-5.3); RED CELL DISTRIBUTION WIDTH 19.3 % (9.6-15.2)
[2019-01-26 04:57] LABS: CHLORIDE 102 mmol/L (98-107)
[2019-01-26 05:02] LABS: ALANINE AMINOTRANSFERASE 30 U/L (12-78); ALKALINE PHOSPHATASE 65 U/L (45-117); ANION GAP 6 mmol/L (5-15); BILIRUBIN,TOTAL 0.7 mg/dL (0.2-1.0); CALCIUM 8.6 mg/dL (8.5-10.1); CREATININE 5.07 mg/dL (0.55-1.02); TOTAL PROTEIN 6.5 g/dL (6.4-8.2)
[2019-01-26] MEDS: PANTOPROZOLE 40MG TABLET PO SCH ×2 (05:19→22:07)
[2019-01-26] MEDS: LEVOTHYROXINE 125 MCG TABLET PO SCH (05:19)
[2019-01-26 07:10] VITALS: BP 163/76
[2019-01-26] MEDS: VALPROIC ACID 250 MG CAPSULE PO SCH ×2 (08:03→22:07)
[2019-01-26] MEDS: SEVELAMER CARBONATE 800MG TAB PO SCH ×3 (08:03→19:00)
[2019-01-26] MEDS: SODIUM CHLORIDE FLUSH 10ML SYR IVF SCH ×2 (08:03→21:00)
[2019-01-26] MEDS: BISACODYL 5 MG EC TABLET PO SCH (08:03)
[2019-01-26] MEDS: MULTIVITS,STRESS FORMULA 1 TABLET PO SCH (08:03)
[2019-01-26] MEDS: ASPIRIN 81 MG TABLET EC PO SCH (08:03)
[2019-01-26] MEDS: TRIAMCINOLONE CRM 0.1%, 15GM TP SCH ×2 (08:04→21:00)
[2019-01-26 13:16] VITALS: BP 148/64
[2019-01-26] MEDS ORDERED: PANT40TA5 PO (15:15)
[2019-01-26] MEDS ORDERED: VALP250C PO (15:15)
[2019-01-26 20:59] VITALS: BP 118/73
[2019-01-27 01:50] VITALS: BP 148/83
[2019-01-27] MEDS: PANTOPROZOLE 40MG TABLET PO SCH (05:44)
[2019-01-27] MEDS: LEVOTHYROXINE 125 MCG TABLET PO SCH (05:44)
[2019-01-27 07:09] VITALS: BP 140/79
[2019-01-27] MEDS: SODIUM CHLORIDE FLUSH 10ML SYR IVF SCH (07:20)
[2019-01-27] MEDS: BISACODYL 5 MG EC TABLET PO SCH (07:21)
[2019-01-27] MEDS: MULTIVITS,STRESS FORMULA 1 TABLET PO SCH (08:28)
[2019-01-27] MEDS: TRIAMCINOLONE CRM 0.1%, 15GM TP SCH (08:28)
[2019-01-27] MEDS: VALPROIC ACID 250 MG CAPSULE PO SCH (08:29)
[2019-01-27] MEDS: SEVELAMER CARBONATE 800MG TAB PO SCH ×3 (08:29→17:09)
[2019-01-27] MEDS: ASPIRIN 81 MG TABLET EC PO SCH (08:34)
[2019-01-27 13:08] VITALS: BP 149/75
== END 2019-01-27 17:31 | disposition home health service (06) | DRG 871 ==
LOC: ED 18:14 → EDIP 18:15 → 5SO 20:56 → UNDODISIN 01-14 16:52 → 4EST 01-14 17:51
PROVIDERS: ADMIT Internal Medicine; ATTEND Hospitalist
PROC: 5A1D70Z Performance of Urinary Filtration, Intermittent, Less than 6 Hours Per Day (ICD-10-PCS; principal; 2019-01-13)
PROC: 5A1D70Z Performance of Urinary Filtration, Intermittent, Less than 6 Hours Per Day (ICD-10-PCS; 2019-01-14)
PROC: 5A1D70Z Performance of Urinary Filtration, Intermittent, Less than 6 Hours Per Day (ICD-10-PCS; 2019-01-17)
PROC: 5A1D70Z Performance of Urinary Filtration, Intermittent, Less than 6 Hours Per Day (ICD-10-PCS; 2019-01-19)
PROC: 5A1D70Z Performance of Urinary Filtration, Intermittent, Less than 6 Hours Per Day (ICD-10-PCS; 2019-01-24)
PROC: 5A1D70Z Performance of Urinary Filtration, Intermittent, Less than 6 Hours Per Day (ICD-10-PCS; 2019-01-26)
DX: A41.9 Sepsis, unspecified organism (principal); K85.10 Biliary acute pancreatitis without necrosis or infection; N18.6 End stage renal disease; J96.01 Acute respiratory failure with hypoxia; E43 Unspecified severe protein-calorie malnutrition; G92 Toxic encephalopathy; J18.9 Pneumonia, unspecified organism; K83.1 Obstruction of bile duct; D68.59 Other primary thrombophilia; E87.1 Hypo-osmolality and hyponatremia; I12.0 Hypertensive chronic kidney disease with stage 5 chronic kidney disease or end stage renal disease; J44.0 Chronic obstructive pulmonary disease with (acute) lower respiratory infection; K57.32 Diverticulitis of large intestine without perforation or abscess without bleeding; N25.81 Secondary hyperparathyroidism of renal origin; K86.1 Other chronic pancreatitis; D53.9 Nutritional anemia, unspecified; D63.1 Anemia in chronic kidney disease; D69.6 Thrombocytopenia, unspecified; E03.9 Hypothyroidism, unspecified; E11.22 Type 2 diabetes mellitus with diabetic chronic kidney disease; E11.51 Type 2 diabetes mellitus with diabetic peripheral angiopathy without gangrene; E55.9 Vitamin D deficiency, unspecified; E78.5 Hyperlipidemia, unspecified; E87.5 Hyperkalemia; E87.6 Hypokalemia; E87.70 Fluid overload, unspecified; F03.90 Unspecified dementia, unspecified severity, without behavioral disturbance, psychotic disturbance, mood disturbance, and anxiety; D50.9 Iron deficiency anemia, unspecified; K59.00 Constipation, unspecified; Z85.038 Personal history of other malignant neoplasm of large intestine; Z90.49 Acquired absence of other specified parts of digestive tract; Z90.710 Acquired absence of both cervix and uterus; Z99.2 Dependence on renal dialysis; Z68.32 Body mass index [BMI] 32.0-32.9, adult
CPT/HCPCS: 36415; 36600; 70450; 71045; 74018; 74176; 74181; 80053; 80061; 81001; 82140; 82306; 82330; 82542; 82607; 82728; 82803; 82962; 83036; 83540; 83550; 83690; 83735; 83970; 84100; 84439; 84443; 84484; 85025; 85610; 85730; 86705; 86706; 87040; 87086; 87340; 93005; 93306; 94640; 96374; G0378; J0881; J1170; J1644; J2310; J2405; J7042; J7613; J0694